=== PATIENT | female | born 1985 | race Caucasian/White ===

== ENCOUNTER 2022-09-14 12:06 | Day surgery (SDC) | payer OTHER ==
[2022-09-11 10:51] VITALS: BMI 22.4
[2022-09-14 13:48] VITALS: RESP 18; TEMP 97
[2022-09-14 14:06] VITALS: BP 112/61; PULSE 84
== END 2022-09-14 14:10 | disposition home or self-care (01) ==
LOC: FASU-ENDO 12:06
PROVIDERS: ATTEND Internal Medicine Gastroenterology
PROC: 0DJD8ZZ Inspection of Lower Intestinal Tract, Via Natural or Artificial Opening Endoscopic (ICD-10-PCS; principal; 2022-09-14 13:10)
DX: Z12.11 Encounter for screening for malignant neoplasm of colon (principal); K64.1 Second degree hemorrhoids; Z80.0 Family history of malignant neoplasm of digestive organs
CPT/HCPCS: 84703